=== PATIENT | female | born 1960 | race Caucasian/White ===

== ENCOUNTER 2017-07-09 18:00 | Emergency (ER) | payer MEDICARE, MEDICAID ==
[~2017-07-09] VITALS: Ht 162.6 cm; Wt 163.6 kg
[~2017-07-09 18:00] MED LIST: ALPHAMIN1000 MCG/M IM; AMITRIPTYLINE H25 M1 PO; ATIVAN 0.50.5 MG/TAB PO; BACTRIM DS 8001 TAB PO; BUDEPRION SR150 M1 PO; BUMEX 1MG TA1 MG/TA1; CARAFATE 1GM1 G PO; CLEOCIN HC150 MG/CAP PO; DAZIDOX10 MG PO; DIFLUCAN150 MG PO; DIFLUCAN200 MG PO; ESTRACE2 MG PO; LIORESAL 1010 MG/TAB PO; LYRICA 150MG C150 MG PO; NASACORT AQ N16.5 GM NS; NEXIUM 40MG40 MG PO; NYAMYC100000 U/G; OMNICEF 300MG300 MG PO; OXYCONTIN30 MG PO; PREDNISONE10 MG PO; PROAIR HFA0.09 MG/AC IH; PROTOPIC0.1% TP; ROBITUSSIN A-C S1 M1 PO; SYNTHROID0.175 MG PO; VOLTAREN GEL 1%1 TU; ZITHROMAX 250M250 MG PO; ZITHROMAX500 M2 PO; ZOFRAN ODT4 MG PO
[2017-07-09 18:03] VITALS: TEMP 97.9
[2017-07-09 19:57] LABS: BASO % 0.3 % (0.0-2.0); EOS # 0.3 (0.0-0.7); EOS % 2.9 % (0-4.0); GRAN # 6.3 (1.4-6.5); GRAN % 70.5 % (42.2-75.2); HEMOGLOBIN 12.9 g/dl (12.5-16.0); LYMPH # 1.6 (1.2-3.4); LYMPH % 18.3 % (20.0-51.0); MEAN CELL VOLUME 91 fl (80.0-100.0); MEAN CORPUSCULAR HEMOGLOBIN 29 pg (27.0-31.0); MEAN CORPUSCULAR HGB CONC 32 g/dl (33.0-37.0); MEAN PLATELET VOLUME 11.3 fl (7.4-10.4); MONO # 0.7 (0.1-0.6); MONO % 7.7 % (1.7-9.3); PLATELET COUNT 197 K/mm3 (130-400); RED BLOOD COUNT 4.53 M/mm3 (4.10-5.30); REDCELL DISTRIBUTION WIDTH-CV 14.1 % (11.5-14.5)
[2017-07-09 20:04] LABS: ALBUMIN 3.7 gm/dL (3.5-5.0); BILIRUBIN,TOTAL 0.4 mg/dL (0.0-1.0); CALCIUM 8.8 mg/dL (8.4-10.2); CREATININE, serum 0.9 mg/dL (0.52-1.25); TOTAL PROTEIN 7.3 gm/dL (6.4-8.2)
[2017-07-09] MEDS ORDERED: WELLBUTRIN 75MG75 MG PO (21:05)
[2017-07-09] MEDS ORDERED: RT ADVAIR 128 DISKUS IH (21:08)
[2017-07-09] MEDS ORDERED: BUMEX 1MG TA1 MG/TA1 PO (21:12)
[2017-07-09] MEDS ORDERED: MYRBETR50MG PO (21:13)
[2017-07-09] MEDS ORDERED: TUSS PO (21:52)
[2017-07-09] MEDS ORDERED: PREDNISONE20 MG PO ×2 (21:52→22:12)
[2017-07-09] MEDS ORDERED: OMNICEF 300MG300 MG PO ×2 (21:52→22:12)
[2017-07-09] MEDS ORDERED: DOXYCYCLINE 10100 MG PO ×2 (21:52→22:12)
[2017-07-09 22:23] VITALS: BP 145/75; PULSE 79
== END 2017-07-09 22:26 | disposition home or self-care (01) ==
LOC: COL.ER 18:00
PROVIDERS: Emergency Medicine
DX: J84.9 Interstitial pulmonary disease, unspecified (principal); Z87.891 Personal history of nicotine dependence; Z87.01 Personal history of pneumonia (recurrent); Z87.39 Personal history of other diseases of the musculoskeletal system and connective tissue; Z79.51 Long term (current) use of inhaled steroids
CPT/HCPCS: J7030; J7512; Q9967

== ENCOUNTER 2017-07-12 17:05 | Inpatient (IN) | payer MEDICARE, MEDICAID ==
[2017-07-12] VITALS (22 sets, daily range): BP systolic 137–139; BP diastolic 70–73; PULSE 78–79; TEMP 97.8–98; O2SAT 90–95
[~2017-07-12] VITALS: Ht 162.6 cm; Wt 163.9 kg
[~2017-07-12 17:05] MED LIST changes: -ALPHAMIN1000 MCG/M IM; +BUMEX 1MG TA1 MG/TA1 PO; +CYANOCOBAL1000 MCG/1 IM; +DOXYCYCLINE 10100 MG PO; +MYRBETR50MG PO; +PREDNISONE20 MG PO; +RT ADVAIR 128 DISKUS IH; +TUSS PO; +WELLBUTRIN 75MG75 MG PO
[2017-07-12 18:00] LABS: COLLECTION METHOD CLEAN CATCH
[2017-07-12 18:20] LABS: PH 6 (5-8); URINE APPEARANCE Hazy; URINE BACTERIA None Seen /hpf; URINE BILIRUBIN Negative (NEGATIVE); URINE BLOOD Negative (NEGATIVE); URINE COLOR Yellow; URINE GLUCOSE Negative (NEGATIVE); URINE KETONE Negative (NEGATIVE); URINE LEUKOCYTE ESTERASE Negative (NEGATIVE); URINE NITRATE Negative (NEGATIVE); URINE PROTEIN(semi-quant) Negative (NEGATIVE); URINE RBC 0-2 /hpf
[2017-07-12 18:30] LABS: BASO % 0.3 % (0.0-2.0); EOS % 0.2 % (0-4.0); GRAN # 6.9 (1.4-6.5); GRAN % 79.3 % (42.2-75.2); HEMATOCRIT 42.9 % (37.0-47.0); HEMOGLOBIN 13.6 g/dl (12.5-16.0); LYMPH # 1.1 (1.2-3.4); LYMPH % 12.3 % (20.0-51.0); MEAN CELL VOLUME 90 fl (80.0-100.0); MEAN CORPUSCULAR HEMOGLOBIN 28 pg (27.0-31.0); MEAN CORPUSCULAR HGB CONC 32 g/dl (33.0-37.0); MEAN PLATELET VOLUME 11.4 fl (7.4-10.4); MONO # 0.6 (0.1-0.6); MONO % 7.1 % (1.7-9.3); PLATELET COUNT 278 K/mm3 (130-400); RED BLOOD COUNT 4.79 M/mm3 (4.10-5.30); REDCELL DISTRIBUTION WIDTH-CV 13.4 % (11.5-14.5)
[2017-07-12 18:49] LABS: ANION GAP 12 mmol/L (7-16); BLOOD UREA NITROGEN 27 mg/dL (7-17); CALCIUM 9.1 mg/dL (8.4-10.2); CARBON DIOXIDE 30 mmol/L (22-30); CHLORIDE 100 mmol/L (98-107); CREATININE, serum 0.96 mg/dL (0.52-1.25); GLUCOSE 122 mg/dL (74-106); POTASSIUM 4.6 mmol/L (3.4-5.0); SODIUM 142 mmol/L (137-145)
[2017-07-12 18:58] LABS: TROPONIN-I < 0.012 ng/mL (0.000-0.034)
[2017-07-12 22:24] LABS: ARTERIAL BLD GAS O2 SATURATION 93.6 % (92-100); ARTERIAL BLD GAS TCO2 CT 29.9; ARTERIAL BLOOD GAS BASE EXCESS 2.8 (-2-2); ARTERIAL BLOOD GAS HCO3 28.5 meq/L (22-26); ARTERIAL BLOOD GAS PCO2 48.1 mmHg (35-45); ARTERIAL BLOOD GAS PO2 75.7 mmHg (80-100); ARTERIAL BLOOD GAS pH 7.39 (7.35-7.45)
[2017-07-13] VITALS (701 sets, daily range): BP systolic 124–141; BP diastolic 54–77; PULSE 60–90; TEMP 97–98.2; O2SAT 85–98
[2017-07-13 05:51] LABS: BASO % 0.4 % (0.0-2.0); EOS % 0.1 % (0-4.0); GRAN # 8.7 (1.4-6.5); GRAN % 86.4 % (42.2-75.2); HEMATOCRIT 41.6 % (37.0-47.0); LYMPH # 0.9 (1.2-3.4); MEAN CELL VOLUME 93 fl (80.0-100.0); MEAN CORPUSCULAR HEMOGLOBIN 29 pg (27.0-31.0); MEAN CORPUSCULAR HGB CONC 31 g/dl (33.0-37.0); MEAN PLATELET VOLUME 11.3 fl (7.4-10.4); MONO # 0.4 (0.1-0.6); MONO % 3.7 % (1.7-9.3); PLATELET COUNT 256 K/mm3 (130-400); RED BLOOD COUNT 4.49 M/mm3 (4.10-5.30); REDCELL DISTRIBUTION WIDTH-CV 13.6 % (11.5-14.5)
[2017-07-13 06:19] LABS: ALBUMIN 3.8 gm/dL (3.5-5.0); BILIRUBIN,TOTAL 0.3 mg/dL (0.0-1.0); CALCIUM 8.7 mg/dL (8.4-10.2); CREATININE, serum 0.95 mg/dL (0.52-1.25); POTASSIUM 4.8 mmol/L (3.4-5.0); TOTAL PROTEIN 7.8 gm/dL (6.4-8.2)
[2017-07-13 15:38] LABS: RHEUMATOID FACTOR-SCREEN 77 IU/mL (0-29)
[2017-07-13 16:05] LABS: PROCALCITONIN 0.03 ng/mL (0.00-0.09)
[2017-07-14 04:20] VITALS: BP 150/69; PULSE 78; TEMP 97.7
[2017-07-14 06:41] LABS: BASO % 0.2 % (0.0-2.0); EOS % 0.1 % (0-4.0); GRAN # 7.7 (1.4-6.5); GRAN % 73.6 % (42.2-75.2); HEMATOCRIT 38.3 % (37.0-47.0); HEMOGLOBIN 12.1 g/dl (12.5-16.0); LYMPH # 1.7 (1.2-3.4); LYMPH % 15.8 % (20.0-51.0); MEAN CELL VOLUME 91 fl (80.0-100.0); MEAN CORPUSCULAR HEMOGLOBIN 29 pg (27.0-31.0); MEAN CORPUSCULAR HGB CONC 32 g/dl (33.0-37.0); MEAN PLATELET VOLUME 11.2 fl (7.4-10.4); MONO % 9.5 % (1.7-9.3); PLATELET COUNT 248 K/mm3 (130-400); REDCELL DISTRIBUTION WIDTH-CV 13.4 % (11.5-14.5)
[2017-07-14 07:29] VITALS: BP 126/108; PULSE 53; TEMP 97
[2017-07-14] MEDS ORDERED: ZITHROMAX 250M250 MG PO (13:20)
[2017-07-14] MEDS ORDERED: PREDNISONE10 MG PO (13:25)
[2017-07-14 13:30] VITALS: BP 154/80; PULSE 82; TEMP 96.7
[2017-07-14 14:39] LABS: ANGIOTENSIN CONVERTING ENZYME 34 U/L (8 - 53)
== END 2017-07-14 17:00 | disposition home health service (06) | DRG 202 ==
LOC: COL.ER 17:05 → MEDICAL 19:04 → ICU 19:13 → MEDICAL 19:19 → ICU 23:26 → MEDICAL 07-13 13:54
PROVIDERS: Emergency Medicine; Family Medicine; Nurse Practitioner Family
DX: J20.6 Acute bronchitis due to rhinovirus (principal); Z68.44 Body mass index [BMI] 60.0-69.9, adult; E87.2 Acidosis; E66.2 Morbid (severe) obesity with alveolar hypoventilation; Z98.84 Bariatric surgery status; M79.7 Fibromyalgia; G89.4 Chronic pain syndrome
CPT/HCPCS: 99223-AI; 99239; J0456; J1650; J2185; J2930; J3370; J7050; J7512

== ENCOUNTER 2018-07-24 16:42 | Emergency (ER) | payer MEDICARE, MEDICAID ==
[~2018-07-24] VITALS: Ht 162.6 cm; Wt 165.0 kg
[2018-07-24 16:51] VITALS: TEMP 97.9
[2018-07-24 17:58] LABS: BASO % 0.7 % (0.0-2.0); GRAN # 4.1 (1.4-6.5); GRAN % 71.4 % (42.2-75.2); LYMPH # 1.1 (1.2-3.4); MEAN CELL VOLUME 90 fl (80.0-100.0); MEAN CORPUSCULAR HEMOGLOBIN 28 pg (27.0-31.0); MEAN CORPUSCULAR HGB CONC 31 g/dl (33.0-37.0); MEAN PLATELET VOLUME 12.7 fl (7.4-10.4); MONO # 0.5 (0.1-0.6); MONO % 8.7 % (1.7-9.3); PLATELET COUNT 178 K/mm3 (130-400); RED BLOOD COUNT 5.03 M/mm3 (4.10-5.30); REDCELL DISTRIBUTION WIDTH-CV 14.8 % (11.5-14.5)
[2018-07-24 18:26] LABS: BILIRUBIN,TOTAL 0.6 mg/dL (0.0-1.0); C-REACTIVE PROTEIN 1.4 mg/dL (0.0-0.9); CALCIUM 9.6 mg/dL (8.4-10.2); CREATININE, serum 1.08 (0.52-1.25); POTASSIUM 4.2 mmol/L (3.4-5.0); TOTAL PROTEIN 7.3 gm/dL (6.4-8.2)
[2018-07-24 19:59] LABS: COLLECTION METHOD CLEAN CATCH
[2018-07-24 20:10] LABS: MUCOUS Present /lpf; PH 8 (5-8); SQUAMOUS EPITHELIAL 0-2 /hpf; URINE APPEARANCE Hazy; URINE BACTERIA Rare /hpf; URINE BILIRUBIN Negative (NEGATIVE); URINE BLOOD Negative (NEGATIVE); URINE COLOR Yellow; URINE GLUCOSE Negative (NEGATIVE); URINE KETONE Trace (NEGATIVE); URINE LEUKOCYTE ESTERASE Negative (NEGATIVE); URINE NITRATE Positive (NEGATIVE); URINE PROTEIN(semi-quant) Negative (NEGATIVE); URINE UROBILINOGEN Negative (NEGATIVE)
[2018-07-24 21:38] VITALS: BP 123/67; PULSE 72
== END 2018-07-24 21:38 | disposition home or self-care (01) ==
LOC: COL.ER 16:42
PROVIDERS: Family Medicine; Nurse Practitioner
DX: R10.32 Left lower quadrant pain (principal); F32.9 Major depressive disorder, single episode, unspecified; K21.9 Gastro-esophageal reflux disease without esophagitis; M79.7 Fibromyalgia
CPT/HCPCS: J2270; J2405; J3010; J7030; Q9967

== ENCOUNTER → 2019-10-01 | Outpatient (CLI) | payer MEDICARE, MEDICAID ==
[2019-10-01 11:31] LABS: ARTERIAL BLD GAS O2 SATURATION 91.2 % (92-100); ARTERIAL BLOOD GAS BASE EXCESS 3.6 (-2-2); ARTERIAL BLOOD GAS HCO3 30.4 meq/L (22-26); ARTERIAL BLOOD GAS PCO2 54.5 mmHg (35-45); ARTERIAL BLOOD GAS PO2 57.1 mmHg (80-100); ARTERIAL BLOOD GAS pH 7.36 (7.35-7.45)
== END ==
LOC: COL.PUL 11:05
PROVIDERS: Internal Medicine Pulmonary Disease
DX: G47.31 Primary central sleep apnea (principal)

== ENCOUNTER 2019-10-22 18:35 | Inpatient (IN) | payer MEDICARE, MEDICAID ==
[~2019-10-22] VITALS: Ht 162.6 cm; Wt 180.9 kg
[2019-10-22 19:26] LABS: BASO % 0.2 % (0.0-2.0); EOS % 0.2 % (0-4.0); GRAN # 11.2 (1.4-6.5); GRAN % 86.6 % (42.2-75.2); HEMATOCRIT 40.1 % (37.0-47.0); HEMOGLOBIN 12.5 g/dl (12.5-16.0); LYMPH # 0.8 (1.2-3.4); LYMPH % 6.1 % (20.0-51.0); MEAN CELL VOLUME 94 fl (80.0-100.0); MEAN CORPUSCULAR HEMOGLOBIN 29 pg (27.0-31.0); MEAN CORPUSCULAR HGB CONC 31 g/dl (33.0-37.0); MEAN PLATELET VOLUME 12.3 fl (7.4-10.4); MONO # 0.8 (0.1-0.6); MONO % 6.3 % (1.7-9.3); PLATELET COUNT 133 K/mm3 (130-400); RED BLOOD COUNT 4.26 M/mm3 (4.10-5.30); REDCELL DISTRIBUTION WIDTH-CV 15.4 % (11.5-14.5)
[2019-10-22 19:38] LABS: ALBUMIN 3.4 gm/dL (3.5-5.0); BILIRUBIN,TOTAL 0.8 mg/dL (0.0-1.0); CALCIUM 8.2 mg/dL (8.4-10.2); CREATININE, serum 1.29 (0.52-1.25); TOTAL PROTEIN 6.7 gm/dL (6.4-8.2)
[2019-10-22 20:07] LABS: C-REACTIVE PROTEIN 39.3 mg/dL (0.0-0.9)
[2019-10-22 21:55] VITALS: BP 110/55; PULSE 99; TEMP 97.5
--- NOTE | 2019-10-22 21:57 | NUR ---
PT ADMITTED TO ROOM 341 PER CBED. X4 STAFF TO TRANSFER. VANCOMYCIN STILL INFUSING AT 166/HR TO RT ARM. PT HAVING LEVEL 8-9 PAIN AT REST. ORIENTED TO ROOM. CALL LIGHT IN REACH. BED ALARM ON.
[2019-10-22] MEDS ORDERED: NAPROSYN500 MG PO (23:09)
[2019-10-22] MEDS ORDERED: SINGULAIR 110 MG/TAB PO (23:16)
[2019-10-22] MEDS ORDERED: PROTONIX 40MG T40 MG PO (23:17)
[2019-10-22 23:47] VITALS: BP 102/53; PULSE 95; TEMP 97.7
[2019-10-22] MEDS ORDERED: ANTIVERT 25MG25 MG PO (23:50)
[2019-10-22] MEDS ORDERED: AZO-CRANBERRY450 MG (23:52)
[2019-10-22] MEDS ORDERED: ATARAX 10MG10 MG/TAB PO (23:55)
[2019-10-22] MEDS ORDERED: MYCELEX10 MG/TAB MM (23:58)
[2019-10-22] MEDS ORDERED: ALEVE 220MG220 MG PO (23:59)
--- NOTE | 2019-10-23 | NUR ---
PT SLEEPING. O2 3L/NC. HEPARIN GTT AT 23CC/HR. IV SITE CLEAR. EXTERNAL CATHETER IN PLACE. NO URINE AT THIS TIME. NO EVIDENCE OF PAIN. LLE ELEVATED ON PILLOWS. PEDAL PULSE PRESENT. FEET WARM TO TOUGH. CALL LIGHT IN REACH. BED ALARM SET.
[2019-10-23] MEDS ORDERED: VENTOLIN0.09 MG IH (00:11)
[2019-10-23] MEDS ORDERED: RT ADVAIR 228 DISKUS IH (00:14)
--- NOTE | 2019-10-23 00:30 | NUR ---
TURNED OVER TO CLEAN BUTTOCK. HAD DRIED BM ON BEDDING. TRANSFERRED PT TO BARIATRIC BED AND THEN TO ROOM 322. RT HERE TO PLACE CPAP WITH O2. PT DOZING. CALL LIGHT IN REACH.
[2019-10-23] MEDS ORDERED: SYSTANE 0.4%-0.1 SOL OP (00:46)
[2019-10-23] MEDS ORDERED: WOMEN'S DAILY F1 TAB PO (00:47)
--- NOTE | 2019-10-23 02:30 | NUR ---
PT SLEEPING WAKES AND MOANS IN PAIN. LLE PAIN LEVEL 9/10. SEE MAR FOR ROXICODE GIVEN. CPAP BACK ON. PT FALLS ASLEEP.
[2019-10-23 04:00] VITALS: BP 114/51; PULSE 74; TEMP 98.9
[2019-10-23] MEDS ORDERED: ABILIFY 10MG TA10 MG PO (05:46)
--- NOTE | 2019-10-23 05:49 | NUR ---
PT MOANING. C/O LLE PAIN. SEE MAR. CONTINUED CPAP WITH O2 BLED IN. HEPARIN GTT CONTINUES W/O DIFFICULTY. NO OTHER NEEDS AT THIS TIME.
--- NOTE | 2019-10-23 06:42 | NUR ---
CALLED LAB FOR HEPARIN LEVEL.
--- NOTE | 2019-10-23 08:19 | NUR ---
RA SPO2 78% PLACED ON 4 LPM NC 93%
[2019-10-23 08:57] VITALS: BP 121/52; PULSE 106; TEMP 97.6
--- NOTE | 2019-10-23 09:00 | NUR ---
Flower ATKINSON notified of + blood cx
[2019-10-23 11:00] VITALS: BP 103/50; PULSE 75; TEMP 97.2
--- NOTE | 2019-10-23 11:09 | NUR ---
Derrick Barge Operator met with patient to discuss discharge planning. Patient lives in [place] with her boyfriend, Cale Zhang (ph#[phone]). Patient reports Cale works in [place] and is just here temporarily until he has to return to work. Patient states Cale works for the [employer] [place] and when he returned to [place] this last time, they quarantined for 14 days due to concerns for COVID. Patient states her sister, Anamika (ph#[phone]) lives in [place] as well. Patient has DPOA-HC located in [facility] which designate her son, Jaden (ph#[phone]) and Cale. Patient states she receives some in home services from [facility] but that they have not been out lately due to COVID. Patient reports she has a four wheeled walker that she uses primarily along with a cane and lift chair at home. Patient also has home oxygen and CPAP from [facility]. Patient obtains medications from either [facility] in [place] or [facility] in [place]. Patient states sometimes her sister or niece pepper picker the medications for her. Patient's primary care physician is Elda Gomes PA-C. Patient states she has had a little more difficulty getting around recently. PT/OT have been ordered and MAGGY will follow for recommendations. MAGGY contacted Alina at [facility] and left a message. MAGGY contacted patient's son, Jaden who reports patient does not get around much at home. Jaden advised patient spends most of her time in her recliner, which can lift her up. Jaden reports normally patient can walk to the bathroom independently. SW will continue to follow for discharge needs.
--- NOTE | 2019-10-23 11:15 | NUR ---
Patient down to radiology for knee aspiration
--- NOTE | 2019-10-23 12:20 | NUR ---
Patient called out to nurses station, states pain to LLE after returning from radiology.
--- NOTE | 2019-10-23 12:30 | NUR ---
Vancomycin Initial Dosing Pharmacy Note Ordering provider: Romeo Clemons MD Indication/duration: Cellulitis LLE Relevant comorbidities: Prosthetic joint LABS: SCr = 1.29 Recommendation: Checking trough prior to 4th dose. Will follow labs. Loading dose: 2 grams Maintenance dose: 2 grams every 12 hours Trough goal: 10-15 ug/mL
[2019-10-23 12:58] LABS: SYNOVIAL FL. MONONUCLEAR 22.1 % (0-75)
[2019-10-23 13:01] LABS: SYNOVIAL FLUID WBC 19228 /mm3 (200-600)
[2019-10-23 13:03] LABS: SYNOVIAL FLUID RBC 4000 /mm3 (0-0)
[2019-10-23 13:12] LABS: SYNOVIAL FLUID APPEARANCE CLOUDY; SYNOVIAL FLUID COLOR YELLOW
[2019-10-23 17:08] VITALS: BP 117/58; PULSE 74; TEMP 97.9
--- NOTE | 2019-10-23 18:16 | NUR ---
Solange has done well throughout the day. Has requested pain meds for pain to LLE, medications given per orders. Heparin continues infusing per orders. Antibiotics infusing per orders. Denies further needs at this time. Will report off to manufacturing supervisor 2nd shift.
--- NOTE | 2019-10-23 20:00 | NUR ---
PT RESTING IN BED. C/O LLE PAIN. SEE MAR FOR ROXICODONE GIVEN. PT C/O WAITED TOO LONG TO ASK FOR PAIN MED. DISCUSSED PAIN MANGEMENT. LT KNEE BANDAIDS X3 ARE DRY. LLE WARM TO TOUCH. PPP. SEE MAR FOR HEPARIN GTT.
--- NOTE | 2019-10-23 20:15 | NUR ---
PT RELATES UNRELIEVED PAIN TO LLE. SEE MAR FOR DILADID IV GIVEN.
--- NOTE | 2019-10-23 23:45 | NUR ---
DILADID IV GIVEN PRIOR TO TURNING PT FOR BEDPAN. PLANNING ON MOVING PT TO A LARGER ROOM 322. ALSO CALLED FOR A BARIATRIC BED WITH CATRACHO. PT HAD NO LUCK WITH BM. PASSING GAS.
[2019-10-24] VITALS (329 sets, daily range): BP systolic 103–143; BP diastolic 42–77; PULSE 62–95; TEMP 98–98.6; O2SAT 71–99
--- NOTE | 2019-10-24 05:27 | NUR ---
PT TOOK CPAP OFF AND FELL ASLEEP. O2 SAT DOWN 72% ON RA. O2 PLACED PER NC AT 4L. O2 SAT RETURNED TO 92%. ZOFRAN GIVEN FOR NAUSEA. LAB HERE TO DRAW BLOOD.
--- NOTE | 2019-10-24 05:30 | NUR ---
PT FEELING BETTER NAUSEA RESOLVED. TAKING ICE CHIP FOR DRY MOUTH. O2 SAT 94% ON 4L NC
[2019-10-24 06:37] LABS: ALBUMIN 3.1 gm/dL (3.5-5.0); BILIRUBIN,TOTAL 0.9 mg/dL (0.0-1.0); CALCIUM 8.2 mg/dL (8.4-10.2); CREATININE, serum 0.96 (0.52-1.25); POTASSIUM 4.6 mmol/L (3.4-5.0); TOTAL PROTEIN 6.5 gm/dL (6.4-8.2)
[2019-10-24 06:55] LABS: BASO % 0.4 % (0.0-2.0); EOS # 0.1 (0.0-0.7); EOS % 0.7 % (0-4.0); GRAN # 7.7 (1.4-6.5); GRAN % 83.1 % (42.2-75.2); HEMATOCRIT 37.5 % (37.0-47.0); HEMOGLOBIN 11.7 g/dl (12.5-16.0); LYMPH # 0.7 (1.2-3.4); LYMPH % 7.5 % (20.0-51.0); MEAN CELL VOLUME 95 fl (80.0-100.0); MEAN CORPUSCULAR HEMOGLOBIN 30 pg (27.0-31.0); MEAN CORPUSCULAR HGB CONC 31 g/dl (33.0-37.0); MEAN PLATELET VOLUME 13.7 fl (7.4-10.4); MONO # 0.7 (0.1-0.6); MONO % 7.2 % (1.7-9.3); PLATELET COUNT 122 K/mm3 (130-400); RED BLOOD COUNT 3.96 M/mm3 (4.10-5.30); REDCELL DISTRIBUTION WIDTH-CV 15.1 % (11.5-14.5)
--- NOTE | 2019-10-24 08:00 | NUR ---
Patient resting in bed at this time. Patient is alert and oriented, answers questions appropriately. Patient is resting in bed eating breakfast at this time. Patient is on O2 via NC at 5L. Purwick external catheter in place, clear yellow urine in suction cannister. Patient is very anxious, requests PRN pain medication but declines axiety medication. Heparin drip in place per order, running at 23 ml/hr per last hep Xa; next draw scheduled at 1100 per protocol. Patient denies further needs at this time, call light within reach.
[2019-10-24 09:49] LABS: ARTERIAL BLD GAS O2 SATURATION 94.1 % (92-100); ARTERIAL BLD GAS TCO2 CT 34.6; ARTERIAL BLOOD GAS BASE EXCESS 3.2 (-2-2); ARTERIAL BLOOD GAS HCO3 32.3 meq/L (22-26); ARTERIAL BLOOD GAS PO2 76.8 mmHg (80-100); ARTERIAL BLOOD GAS pH 7.26 (7.35-7.45)
[2019-10-24 09:50] LABS: ARTERIAL BLOOD GAS PCO2 74.1 mmHg (35-45)
[2019-10-24 11:47] LABS: ARTERIAL BLD GAS O2 SATURATION 95.4 % (92-100); ARTERIAL BLD GAS TCO2 CT 34.6; ARTERIAL BLOOD GAS BASE EXCESS 3.7 (-2-2); ARTERIAL BLOOD GAS HCO3 32.3 meq/L (22-26); ARTERIAL BLOOD GAS PO2 83.3 mmHg (80-100); ARTERIAL BLOOD GAS pH 7.27 (7.35-7.45)
[2019-10-24 11:49] LABS: ARTERIAL BLOOD GAS PCO2 71.9 mmHg (35-45)
--- NOTE | 2019-10-24 13:00 | NUR ---
Patient arrived to ICU 1 in a bed on O2. Patient not in distress and is stable.
--- NOTE | 2019-10-24 13:14 | NUR ---
Patient transported to ICU per orders via bariatric bed. Patient transported with 6L O2, RT present during transfer to monitor patient respratory status. Heparin drip and IV zosyn in place upon transfer. Patient belongings and chart gathered, transported with her to ICU. Patient and recieving nurse deny further needs.
--- NOTE | 2019-10-24 13:15 | NUR ---
When patient arrived to room it was noted that she, her gown and her entire bed, was soaked with urine. There were bailee pads and towels shoved under her rob area that were also soaked.
[2019-10-24 15:33] LABS: ARTERIAL BLD GAS O2 SATURATION 94.9 % (92-100); ARTERIAL BLD GAS TCO2 CT 37.1; ARTERIAL BLOOD GAS HCO3 34.9 meq/L (22-26); ARTERIAL BLOOD GAS PO2 75.4 mmHg (80-100); ARTERIAL BLOOD GAS pH 7.29 (7.35-7.45)
--- NOTE | 2019-10-24 15:44 | NUR ---
Media Analytics Manager attended clinical rounds with DEMETRIO Crenshaw. Patient is currently on a bipap and will transfer to ICU. Patient had difficulty communicating due to the bipap. SW collaborated with DEMETRIO Crenshaw and LTACH may be appropriate for patient at discharge. SW contacted patient's son, Jaden to provide update. SW discussed LTACH placement with Jaden who is agreeable to have referral sent to [facility]. SW contacted Feroz at [facility] and faxed referral. SW will continue to follow.
--- NOTE | 2019-10-24 16:20 | NUR ---
Anesthesia, Rolando the TERRITORY SALES MANAGER, arrived to intubate patient. Everything set up and ready to go.
--- NOTE | 2019-10-24 16:22 | NUR ---
Patient is intubated, good lunch sounds. OG tube placed. Patient started on propofol drip. CXRAy ordered. Mendoza cather placed. arrived at patient bedside and put in orders for restraints that are placed, as well as other orders.
--- NOTE | 2019-10-24 18:12 | NUR ---
JOSE JUST SEDATED HALF AN HOUR AGO. NO SEDATION VACATION AT THIS TIME.
--- NOTE | 2019-10-24 19:05 | NUR ---
RECEIVED REPORT FROM NEHA MUNSON. RT AT BEDSIDE. VENT SETTINGS: AC, TV 500, RATE 22, PEEP 8, FIO2 50%. ETT 7.5, 20 AT LIPS. OGT PLACEMENT DISCUSSED WITH XRAY, AWAITING FOR CONFIRMATION. DESIGN CELL ENGINEER IN PLACE. FC PATENT AND DRAINING TO GRAVITY. PT AROUSES EASILY AND LOOKS AT NURSE. VSS. SEE GTT FLOWSHEET.
[2019-10-24 19:44] LABS: ARTERIAL BLD GAS O2 SATURATION 92.2 % (92-100); ARTERIAL BLD GAS TCO2 CT 30.3; ARTERIAL BLOOD GAS BASE EXCESS 6.2 (-2-2); ARTERIAL BLOOD GAS HCO3 29.2 meq/L (22-26); ARTERIAL BLOOD GAS PCO2 36.4 mmHg (35-45); ARTERIAL BLOOD GAS PO2 54.1 mmHg (80-100); ARTERIAL BLOOD GAS pH 7.52 (7.35-7.45)
--- NOTE | 2019-10-24 19:50 | NUR ---
SPOKE TO PT'S SON, ED WHO IS NEXT OF KIN, GAVE SON PT'S CODE NUMBER AND UPDATED ON PT'S STATUS.
--- NOTE | 2019-10-24 22:00 | NUR ---
SPOKE WITH TERRI NEELY, VERBALIZED RADIOLOGIST STATES OGT IN STOMACH AFTER REINSERTION FROM TUBE ORIGINALLY NOTED IN THROAT. OGT SECURED AT 68 LIPS AND PLACED ON LIS.
--- NOTE | 2019-10-24 22:45 | NUR ---
SPOKE WITH EPHARMACY ABOUT WHAT MEDICATIONS CAN AND CANNOT BE CRUSHED, SEE MAR FOR MEDICATION ADMINISTRATION.
[2019-10-25] VITALS (666 sets, daily range): BP systolic 123–152; BP diastolic 55–91; PULSE 55–162; TEMP 97.9–98.7; O2SAT 88–100
--- NOTE | 2019-10-25 05:00 | NUR ---
PT AROUSES TO VERBAL STIMULI AND NODS HEAD YES AND NO TO SIMPLE QUESTIONS. NO WEANING TRIAL THIS AM PERFORMED.
[2019-10-25 05:54] LABS: ARTERIAL BLD GAS O2 SATURATION 91.6 % (92-100); ARTERIAL BLOOD GAS BASE EXCESS 7.8 (-2-2); ARTERIAL BLOOD GAS HCO3 29.9 meq/L (22-26); ARTERIAL BLOOD GAS PCO2 34.2 mmHg (35-45); ARTERIAL BLOOD GAS PO2 53.3 mmHg (80-100); ARTERIAL BLOOD GAS pH 7.56 (7.35-7.45)
[2019-10-25 06:30] LABS: HEMATOCRIT 37.7 % (37.0-47.0); HEMOGLOBIN 12.1 g/dl (12.5-16.0); MEAN CELL VOLUME 93 fl (80.0-100.0); MEAN CORPUSCULAR HEMOGLOBIN 30 pg (27.0-31.0); MEAN CORPUSCULAR HGB CONC 32 g/dl (33.0-37.0); MEAN PLATELET VOLUME 12.3 fl (7.4-10.4); PLATELET COUNT 173 K/mm3 (130-400); RED BLOOD COUNT 4.07 M/mm3 (4.10-5.30); REDCELL DISTRIBUTION WIDTH-CV 15.3 % (11.5-14.5)
[2019-10-25 06:40] LABS: CALCIUM 8.8 mg/dL (8.4-10.2); CREATININE, serum 0.9 (0.52-1.25); MAGNESIUM 1.8 mg/dL (1.6-2.3); PHOSPHOROUS 2.2 mg/dL (2.5-4.5); POTASSIUM 3.9 mmol/L (3.4-5.0)
[2019-10-25 06:59] LABS: BAND 8 % (0-10); LYMPHOCYTE 16 % (20.0-51.0); METAMYELOCYTE 1 % (0-0); NEUTROPHILS 71 % (42.0-75.2); PLATELET ESTIMATE NORMAL (NORMAL)
--- NOTE | 2019-10-25 08:53 | NUR ---
CT CALLED UNIT TO INFORM STAFF THAT PT CALL NOT FIT IN MACHINE FOR TESTING, DR. PARSON MADE AWARE AWAITING ORDERS.
--- NOTE | 2019-10-25 10:18 | NUR ---
PT RESTING IN BED, CCIE AT BEDSIDE. PT REMAINS IN RESTRAINTS AT RISK OF PILLING TUBES AND LINE, NARAYAN IN PLACE FOR ACCURATE I&O. PT REMAINS ON FENT AND PROP FOR SEDATION AND NO S/S OF PAIN NOTED AT THIS TIME. PALPATION AND DOPPLER USED TO FIND BILAT LE PULSES. WILL CONTINUE TO MONITOR AND UPDATE PROVIDERS NEEDED
--- NOTE | 2019-10-25 11:34 | NUR ---
PT OGT ADVANCED TO 75CM AT TEETH
--- NOTE | 2019-10-25 13:44 | NUR ---
Employee Communications Specialist contacted the patient's son/DPOA-HC Jaden to introduce oneself and to discuss discharge plan. He is still agreeable to [facility] [place]. SW contacted Feroz with [facility]. They can accept the patient, earliest on Monday, 10/26, possibly Monday, 10/27 and with a negative Covid-19 test. MAGGY faxed updates. Will continue to monitor.
[2019-10-25 13:54] LABS: ARTERIAL BLD GAS O2 SATURATION 92.2 % (92-100); ARTERIAL BLD GAS TCO2 CT 34.2; ARTERIAL BLOOD GAS BASE EXCESS 7.7 (-2-2); ARTERIAL BLOOD GAS HCO3 32.8 meq/L (22-26); ARTERIAL BLOOD GAS PCO2 47.8 mmHg (35-45); ARTERIAL BLOOD GAS PO2 62.7 mmHg (80-100); ARTERIAL BLOOD GAS pH 7.45 (7.35-7.45)
--- NOTE | 2019-10-25 13:58 | NUR ---
ABG DONE POST CHANGES FROM AM. DR. NARAYAN AT BEDSIDE. RESULTS GIVEN AND CHANGES MADE AT THIS TIME. REPEAT ABG AGAIN AT THIS EVENING.
--- NOTE | 2019-10-25 14:21 | NUR ---
SOCIAL WORK NEEDS COVID TESTING DONE FOR [facility]
--- NOTE | 2019-10-25 17:39 | NUR ---
PIVOT 1.5 TF STARTED AT 15ML/HR
--- NOTE | 2019-10-25 18:28 | NUR ---
PT ABLE TO WAKE TO VOICE COMMAND, F/C, RESPONDS APPROPRIATELY. SEDATION REMAINS THE SAME.
--- NOTE | 2019-10-25 19:10 | NUR ---
RECEIVED REPORT FROM NEHA SRINIVASAN. PT RESTING EASILY ON CURRENT VENT SETTINGS: AC, TV 450, PEEP 10, RATE 15, FIO2 70%. FC PATENT AND DRAINING TO GRAVITY. OGT TO LIS AT 75CM AT THE LIPS. VSS.
[2019-10-25 21:38] LABS: ARTERIAL BLD GAS O2 SATURATION 94.9 % (92-100); ARTERIAL BLD GAS TCO2 CT 34.4; ARTERIAL BLOOD GAS BASE EXCESS 7.4 (-2-2); ARTERIAL BLOOD GAS HCO3 32.8 meq/L (22-26); ARTERIAL BLOOD GAS PCO2 49.8 mmHg (35-45); ARTERIAL BLOOD GAS PO2 76.9 mmHg (80-100); ARTERIAL BLOOD GAS pH 7.44 (7.35-7.45)
[2019-10-26] VITALS (745 sets, daily range): BP systolic 134–155; BP diastolic 67–82; PULSE 65–91; TEMP 97.5–98.4; O2SAT 67–100
--- NOTE | 2019-10-26 02:30 | NUR ---
OGT RESIDUAL 2ML, TF INCREASED TO 30ML/HR PER ORDERS.
--- NOTE | 2019-10-26 05:15 | NUR ---
PT AROUSES EASILY AND FOLLOWS COMMANDS. PT REMAINS VERY CALM. AWAITING RT TO DRAW ABG.
[2019-10-26 05:57] LABS: ARTERIAL BLD GAS O2 SATURATION 94.3 % (92-100); ARTERIAL BLD GAS TCO2 CT 33.2; ARTERIAL BLOOD GAS BASE EXCESS 6.1 (-2-2); ARTERIAL BLOOD GAS HCO3 31.6 meq/L (22-26); ARTERIAL BLOOD GAS PO2 74.8 mmHg (80-100); ARTERIAL BLOOD GAS pH 7.42 (7.35-7.45)
[2019-10-26 07:07] LABS: HEMATOCRIT 37.2 % (37.0-47.0); HEMOGLOBIN 11.8 g/dl (12.5-16.0); MEAN CELL VOLUME 93 fl (80.0-100.0); MEAN CORPUSCULAR HEMOGLOBIN 29 pg (27.0-31.0); MEAN CORPUSCULAR HGB CONC 32 g/dl (33.0-37.0); MEAN PLATELET VOLUME 12.2 fl (7.4-10.4); PLATELET COUNT 182 K/mm3 (130-400); RED BLOOD COUNT 4.01 M/mm3 (4.10-5.30); REDCELL DISTRIBUTION WIDTH-CV 15.8 % (11.5-14.5)
[2019-10-26 07:33] LABS: CALCIUM 8.5 mg/dL (8.4-10.2); CREATININE, serum 0.75 (0.52-1.25); MAGNESIUM 2.2 mg/dL (1.6-2.3); PHOSPHOROUS 4.2 mg/dL (2.5-4.5); POTASSIUM 4.2 mmol/L (3.4-5.0)
[2019-10-26 09:20] LABS: BAND 8 % (0-10); LYMPHOCYTE 9 % (20.0-51.0); METAMYELOCYTE 1 % (0-0); NEUTROPHILS 76 % (42.0-75.2)
[2019-10-26 09:21] LABS: PLATELET ESTIMATE NORMAL (NORMAL)
--- NOTE | 2019-10-26 11:30 | NUR ---
Phone consent for arthroscopic left knee Incision and Drainage obtained from [facility]. Plan to go to OR for procedure this afternoon. Tube feeding off.
--- NOTE | 2019-10-26 19:30 | NUR ---
RECEIVED REPORT FROM NEHA ARROYO. PT RESTING EASILY ON CURRENT VENT SETTINGS: AC, TV 450, PEEP 12, RATE 15, FIO2 70%. SEE GTT FLOWSHEET. FC PATENT AND DRAINING TO GRAVITY. NOTED TO LLE DRESSING NEW FROM I&D TODAY. TF INFUSING AT 30ML/HR STILL R/T BEING ON HOLD FROM SURGERY AND WAITING TO SEE HOW PT TOLERATES. VSS.
--- NOTE | 2019-10-26 21:45 | NUR ---
TF INCREASED TO 45ML/HR. NO RESIDUALS NOTED.
[2019-10-27] VITALS (766 sets, daily range): BP systolic 102–159; BP diastolic 55–88; PULSE 56–86; TEMP 98–99; O2SAT 76–100
--- NOTE | 2019-10-27 04:00 | NUR ---
SPOKE WITH SHU'S NURSE ABOUT PT'S HR AND INCREASE OF ECTOPY TONIGHT. ALSO DISCUSSED NOTED TF IN HIGH LOW AND WHEN SUCTIONING OUT MOUTH BUT MOST RESIDUAL WITH FLATTENING PT OUT WAS ONLY 10ML. SHU NURSE DISCUSSED WITH PHYSICIAN, PHYSICIAN REQUESTS MORNING MOTOR EQUIPMENT COMMANDING OFFICER AND LABS TO BE DONE NOW. AWAITING RESULTS.
[2019-10-27 05:09] LABS: HEMATOCRIT 37.6 % (37.0-47.0); HEMOGLOBIN 11.8 g/dl (12.5-16.0); MEAN CELL VOLUME 93 fl (80.0-100.0); MEAN CORPUSCULAR HEMOGLOBIN 29 pg (27.0-31.0); MEAN CORPUSCULAR HGB CONC 31 g/dl (33.0-37.0); MEAN PLATELET VOLUME 11.7 fl (7.4-10.4); PLATELET COUNT 188 K/mm3 (130-400); RED BLOOD COUNT 4.06 M/mm3 (4.10-5.30); REDCELL DISTRIBUTION WIDTH-CV 15.6 % (11.5-14.5)
[2019-10-27 05:15] LABS: CALCIUM 8.5 mg/dL (8.4-10.2); CREATININE, serum 0.75 (0.52-1.25); MAGNESIUM 2.2 mg/dL (1.6-2.3); POTASSIUM 4.5 mmol/L (3.4-5.0)
[2019-10-27 05:30] LABS: BAND 2 % (0-10); EOSINOPHIL 1 % (0-4); LYMPHOCYTE 8 % (20.0-51.0); METAMYELOCYTE 2 % (0-0); MYELOCYTE 4 % (0-0); NEUTROPHILS 81 % (42.0-75.2); PLATELET ESTIMATE NORMAL (NORMAL)
--- NOTE | 2019-10-27 05:30 | NUR ---
PT AROUSES EASILY TO NURSE'S VOICE AND LOOKS AROUND AND PULLS AGAINST RESTRAINTS. SPOKE WITH RT, NO WEANING TRAIL THIS AM R/T HIGH PEEPS AND HIGH FIO2 STILL AT THIS TIME. POX 92%.
[2019-10-27 06:08] LABS: ARTERIAL BLD GAS O2 SATURATION 95.4 % (92-100); ARTERIAL BLD GAS TCO2 CT 31.8; ARTERIAL BLOOD GAS BASE EXCESS 4.9 (-2-2); ARTERIAL BLOOD GAS HCO3 30.3 meq/L (22-26); ARTERIAL BLOOD GAS PCO2 47.9 mmHg (35-45); ARTERIAL BLOOD GAS PO2 78.7 mmHg (80-100); ARTERIAL BLOOD GAS pH 7.42 (7.35-7.45)
--- NOTE | 2019-10-27 09:29 | NUR ---
ordered to advance OG tube by 10cm. Tube advanced down to 80cm. States no need for repeat chest xray.
--- NOTE | 2019-10-27 11:58 | NUR ---
IF PTS BG AT 1800 IS GREATER THAN 200 START ON INSULIN GTT PER .
--- NOTE | 2019-10-27 17:00 | NUR ---
Pt able to move all extremities. Pt follows commands and shakes head yes or no appropriatly. Pt started becoming restless and sedation restarted.
--- NOTE | 2019-10-27 19:00 | NUR ---
RECEIVED REPORT FROM NEHA WEINER. PT RESTING EASILY ON CURRENT VENT SETTINGS: AC, TV 450, PEEP 14, RATE 15, FIO2 60%. FC PATENT AND DRAINING TO GRAVITY. VSS. SEE GTT FLOWSHEET.
--- NOTE | 2019-10-27 19:01 | NUR ---
Edger Machine Helper this am stated d/t pts propofol dosing to have TF at 45ml and start with prosource tid.
--- NOTE | 2019-10-27 21:20 | NUR ---
RN NOTED WHEN ABOUT TO GIVE NIGHT TIME MEDICATIONS AND PROSOURCE, THAT PT HAD A MODERATE AMOUNT OF TF ON CHEST AND IN MOUTH. SHU PHYSICIAN NOTIFIED AND DISCUSSED THAT THE TF AND RESIDUALS HAD BEEN ADRESSED LAST NIGHT AND TODAY BY [facility]. UNFORTUNATELY, PT IS STILL STRUGGLING TO TOLERATE EVEN AFTER CHANGE IN TF/PROSOURCE AND ADVANCEMENT TO 80CM OF OGT. PHYSICIAN STATES TO LEAVE TF ON HOLD FOR TONIGHT AND TO NOT GIVE PROSOURCE TONIGHT BUT IS OKAY TO GIVE MEDICATIONS AND WATER THROUGH OGT ONLY TONIGHT. NEW ORDERS FOR RADIOLOGY ORDERED FOR AM PER PHYSICIAN. INSULIN GTT ON HOLD AT THIS TIME R/T PROTOCOL. AWAITING 30 MINS FOR RECHECK.
--- NOTE | 2019-10-27 21:52 | NUR ---
FSBS RECHECKED AFTER 30 MIN HOLD, FOUND TO BE 136. WITH TF ON HOLD, SHU PHYSICIAN NOTIFIED OF FSBS AND STATES TO PUT INSULIN GTT ON HOLD FOR TONIGHT AND CHANGED TO Q4HR FSBS WITH LOW DOSE SLIDING SCALE UNTIL TF OR ENTERAL FEEDINGS RESUMED NECESSARY. SEE MAR.
[2019-10-28] VITALS (556 sets, daily range): BP systolic 123–160; BP diastolic 60–106; PULSE 61–109; TEMP 98.4–99; O2SAT 87–100
[2019-10-28 04:47] LABS: ARTERIAL BLD GAS O2 SATURATION 96.4 % (92-100); ARTERIAL BLD GAS TCO2 CT 38.5; ARTERIAL BLOOD GAS BASE EXCESS 10.3 (-2-2); ARTERIAL BLOOD GAS HCO3 36.7 meq/L (22-26); ARTERIAL BLOOD GAS PCO2 57.8 mmHg (35-45); ARTERIAL BLOOD GAS PO2 89.3 mmHg (80-100); ARTERIAL BLOOD GAS pH 7.42 (7.35-7.45)
--- NOTE | 2019-10-28 05:45 | NUR ---
ACCORDING TO RT, NO WEANING TRIAL THIS AM. XRAY AT BEDSIDE, PT BARELY AROUSES WHEN MOVED AROUND THE BED TO PLACE XRAY BOARD BEHIND BACK. DECREASED SEDATION FOR MORE PT AROUSAL AT THIS TIME. VSS.
[2019-10-28 07:00] LABS: HEMATOCRIT 37.2 % (37.0-47.0); HEMOGLOBIN 11.6 g/dl (12.5-16.0); MEAN CELL VOLUME 93 fl (80.0-100.0); MEAN CORPUSCULAR HEMOGLOBIN 29 pg (27.0-31.0); MEAN CORPUSCULAR HGB CONC 31 g/dl (33.0-37.0); MEAN PLATELET VOLUME 12.1 fl (7.4-10.4); PLATELET COUNT 199 K/mm3 (130-400); RED BLOOD COUNT 4.01 M/mm3 (4.10-5.30); REDCELL DISTRIBUTION WIDTH-CV 15.2 % (11.5-14.5)
[2019-10-28 07:05] LABS: ALBUMIN 3.4 gm/dL (3.5-5.0); BILIRUBIN,TOTAL 0.5 mg/dL (0.0-1.0); CALCIUM 8.9 mg/dL (8.4-10.2); CREATININE, serum 0.75 (0.52-1.25); MAGNESIUM 2.4 mg/dL (1.6-2.3); PHOSPHOROUS 4.5 mg/dL (2.5-4.5); POTASSIUM 4.8 mmol/L (3.4-5.0); TOTAL PROTEIN 6.8 gm/dL (6.4-8.2)
[2019-10-28 07:12] LABS: PRE ALBUMIN 20.2 mg/dL (17.6-36.0)
--- NOTE | 2019-10-28 08:00 | NUR ---
Tube feeds restarted per Dr. Real. Resume insulin gtt if needed as well. Patient to try CPAP trial with decreased sedation at this time.
[2019-10-28 09:56] LABS: BAND 3 % (0-10); LYMPHOCYTE 18 % (20.0-51.0); METAMYELOCYTE 6 % (0-0); MYELOCYTE 1 % (0-0); NEUTROPHILS 64 % (42.0-75.2)
[2019-10-28 09:57] LABS: ANISOCYTOSIS 1+; HYPOCHROMIA 1+; PLATELET ESTIMATE NORMAL (NORMAL)
--- NOTE | 2019-10-28 14:02 | NUR ---
Event Technician contacted Feroz at [facility] and faxed updates. SW will continue to follow.
--- NOTE | 2019-10-28 20:00 | NUR ---
PATIENT OPENS EYES UPON HEARING STAFF COME INTO ROOM. SHAKES HEAD BACK AND FORTH AND SHAKES LEFT FOOT. PATIENT CALMS SELF UPON COMMUNICATION FROM STAFF.
[2019-10-29] VITALS (638 sets, daily range): BP systolic 101–152; BP diastolic 61–87; PULSE 76–109; TEMP 98.3–99.2; O2SAT 74–100
--- NOTE | 2019-10-29 | NUR ---
SON CALLED AND TALKED TO PATIENT VIA VIDEO TABLET, PATIENT WOULD REACT TO SON'S VOICE, BEING AWAKE WAS BRIEF, COMMUNCATIONS LASTED FOR 20 MINUTES
[2019-10-29 05:41] LABS: ARTERIAL BLD GAS O2 SATURATION 94.6 % (92-100); ARTERIAL BLD GAS TCO2 CT 34.5; ARTERIAL BLOOD GAS BASE EXCESS 8.4 (-2-2); ARTERIAL BLOOD GAS HCO3 33.1 meq/L (22-26); ARTERIAL BLOOD GAS PCO2 45.8 mmHg (35-45); ARTERIAL BLOOD GAS PO2 72.5 mmHg (80-100); ARTERIAL BLOOD GAS pH 7.48 (7.35-7.45)
[2019-10-29 07:31] LABS: CALCIUM 9.1 mg/dL (8.4-10.2); CREATININE, serum 0.79 (0.52-1.25); MAGNESIUM 2.3 mg/dL (1.6-2.3); PHOSPHOROUS 5.3 mg/dL (2.5-4.5); POTASSIUM 4.5 mmol/L (3.4-5.0)
[2019-10-29 08:20] LABS: HEMATOCRIT 39.8 % (37.0-47.0); HEMOGLOBIN 12.9 g/dl (12.5-16.0); MEAN CELL VOLUME 91 fl (80.0-100.0); MEAN CORPUSCULAR HEMOGLOBIN 29 pg (27.0-31.0); MEAN CORPUSCULAR HGB CONC 32 g/dl (33.0-37.0); MEAN PLATELET VOLUME 11.7 fl (7.4-10.4); PLATELET COUNT 241 K/mm3 (130-400); RED BLOOD COUNT 4.39 M/mm3 (4.10-5.30); REDCELL DISTRIBUTION WIDTH-CV 15.1 % (11.5-14.5)
[2019-10-29 08:34] LABS: ARTERIAL BLD GAS O2 SATURATION 95.4 % (92-100); ARTERIAL BLD GAS TCO2 CT 38.6; ARTERIAL BLOOD GAS BASE EXCESS 10.5 (-2-2); ARTERIAL BLOOD GAS HCO3 36.9 meq/L (22-26); ARTERIAL BLOOD GAS PCO2 56.2 mmHg (35-45); ARTERIAL BLOOD GAS PO2 78.2 mmHg (80-100); ARTERIAL BLOOD GAS pH 7.44 (7.35-7.45)
--- NOTE | 2019-10-29 08:45 | NUR ---
PICC intact right upper arm with sterile dressing change done with insertion site cleansed with chloraprep x 1, chlorhexidine impregnated disk applied, skin prep, stat lock, and tegaderm applied. no signs or symptoms of IV complications noted. continue to monitor.
[2019-10-29 09:08] LABS: PATHOLOGY DIFF REVIEW OK
--- NOTE | 2019-10-29 09:40 | NUR ---
Sedation on hold per Dr. Real at 0719. Patient extubated at 0933. Tolerated well. On BIPAP now per Dr. Real. Will repeat ABG in 3 hours per order.
[2019-10-29 10:13] LABS: BAND 7 % (0-10); EOSINOPHIL 2 % (0-4); LYMPHOCYTE 31 % (20.0-51.0); METAMYELOCYTE 2 % (0-0); NEUTROPHILS 50 % (42.0-75.2)
[2019-10-29 10:14] LABS: PLATELET ESTIMATE NORMAL (NORMAL)
[2019-10-29 12:58] LABS: ARTERIAL BLD GAS O2 SATURATION 95.3 % (92-100); ARTERIAL BLD GAS TCO2 CT 36.7; ARTERIAL BLOOD GAS BASE EXCESS 9.2 (-2-2); ARTERIAL BLOOD GAS HCO3 35.1 meq/L (22-26); ARTERIAL BLOOD GAS PO2 78.6 mmHg (80-100); ARTERIAL BLOOD GAS pH 7.44 (7.35-7.45)
--- NOTE | 2019-10-29 16:38 | NUR ---
Brick Stacker contacted Feroz at [facility] who advised they received updates yesterday and are still able to accept. SW contacted patient's son, Jaden to provide update. SW will continue to follow.
[2019-10-30] VITALS (390 sets, daily range): BP systolic 113–123; BP diastolic 67–70; PULSE 92–113; TEMP 98.3–99.7; O2SAT 83–100
[2019-10-30 05:15] LABS: HEMATOCRIT 41.3 % (37.0-47.0); HEMOGLOBIN 13.1 g/dl (12.5-16.0); MEAN CELL VOLUME 91 fl (80.0-100.0); MEAN CORPUSCULAR HEMOGLOBIN 29 pg (27.0-31.0); MEAN CORPUSCULAR HGB CONC 32 g/dl (33.0-37.0); MEAN PLATELET VOLUME 11.2 fl (7.4-10.4); PLATELET COUNT 223 K/mm3 (130-400); RED BLOOD COUNT 4.52 M/mm3 (4.10-5.30); REDCELL DISTRIBUTION WIDTH-CV 15.2 % (11.5-14.5)
[2019-10-30 05:21] LABS: CALCIUM 9.3 mg/dL (8.4-10.2); CREATININE, serum 0.83 (0.52-1.25); MAGNESIUM 2.2 mg/dL (1.6-2.3); POTASSIUM 4.4 mmol/L (3.4-5.0)
[2019-10-30 05:40] LABS: ARTERIAL BLD GAS O2 SATURATION 94.3 % (92-100); ARTERIAL BLOOD GAS BASE EXCESS -3.9 (-2-2); ARTERIAL BLOOD GAS PCO2 33.1 mmHg (35-45); ARTERIAL BLOOD GAS PO2 75.5 mmHg (80-100)
--- NOTE | 2019-10-30 06:00 | NUR ---
PT has had consistent pain throughout the night. Discussed pain medication options including staggering different pain medications for patient so that she had consistent coverage for pain. PT agreed with plan but was still requesting pain medication within 30min-1hr of administration. However, after asking for pain medication or stating that "nothing is working for my pain!", PT would fall asleep within 2 minutes of stating this or asking for more meds. Repositioning of leg, positive encouragement were used in supplement to medication. PT refused turning throughout the night.
[2019-10-30 06:06] LABS: BAND 8 % (0-10); EOSINOPHIL 2 % (0-4); HYPOCHROMIA 1+; LYMPHOCYTE 30 % (20.0-51.0); NEUTROPHILS 56 % (42.0-75.2); PLATELET ESTIMATE NORMAL (NORMAL)
[2019-10-30 06:07] LABS: ANISOCYTOSIS 1+
--- NOTE | 2019-10-30 07:00 | NUR ---
Report given to NEHA Beaulieu.
--- NOTE | 2019-10-30 07:19 | NUR ---
Report received from Laura SOLOMON and care resumed.
--- NOTE | 2019-10-30 07:29 | NUR ---
Dr Real in to see pt at this time. New orders received.
--- NOTE | 2019-10-30 08:53 | NUR ---
Dr Clemons in to see pt at this time. Pt was given prn pain meds as requested and then placed back on bipap to rest. Will continue to follow.
--- NOTE | 2019-10-30 11:25 | NUR ---
Warfarin Initial Dosing Pharmacy Note Ordering Provider: Romeo Clemons MD Indication: VTE/PE Treatment Recommendation: Start Warfarin 7.5 mg po qHS. Warfarin is being bridged with heparin drip. Pharmacy will continue to monitor daily INR levels. Goal INR: 2-3
--- NOTE | 2019-10-30 12:26 | NUR ---
Initial visit; Patient thanked Enrollment Consultant for looking in on her, visiting and offering prayer and God's blessings. Patient would like Enrollment Consultant to look in on her again.
--- NOTE | 2019-10-30 16:08 | NUR ---
Cyber Workforce Developer And Manager was notified by Hospitalist that patient is ready for discharge if [facility] has bed availability. MAGGY contacted Feroz at [facility] who advised there is a bed available and requested pickling solution maker time for 1600. MAGGY met with patient who is agreeable to discharge plan and signed consent form for transfer. MAGGY contacted patient's son, Jaden to update on discharge and Jaden reports he has already been in contact with Feroz and is in agreement. MAGGY set up transport with [facility] with a pickling solution maker time of 1600. MAGGY provided report # to RN then faxed discharge orders to [facility]. MAGGY placed completed EMS forms on patient's chart. No additional needs at this time.
--- NOTE | 2019-10-30 16:15 | NUR ---
Report called to [facility]. EMS here and report also given. Pt discharged at 1615 to [facility].
== END 2019-10-30 16:15 | DRG 485 ==
LOC: COL.ER 18:35 → SURG 20:39 → ICU 10-24 13:08
PROVIDERS: Emergency Medicine; Internal Medicine; Internal Medicine Pulmonary Disease; Physician Assistant; ADMIT Hospitalist
PROC: 02HV33Z Insertion of Infusion Device into Superior Vena Cava, Percutaneous Approach (ICD-10-PCS; principal; 2019-10-24)
PROC: 0BH17EZ Insertion of Endotracheal Airway into Trachea, Via Natural or Artificial Opening (ICD-10-PCS; 2019-10-24)
PROC: 5A1945Z Respiratory Ventilation, 24-96 Consecutive Hours (ICD-10-PCS; 2019-10-24)
PROC: 0SBD4ZZ Excision of Left Knee Joint, Percutaneous Endoscopic Approach (ICD-10-PCS; 2019-10-26)
DX: T84.54XA Infection and inflammatory reaction due to internal left knee prosthesis, initial encounter (principal); J96.21 Acute and chronic respiratory failure with hypoxia; J96.22 Acute and chronic respiratory failure with hypercapnia; A41.2 Sepsis due to unspecified staphylococcus; Z68.44 Body mass index [BMI] 60.0-69.9, adult; E66.01 Morbid (severe) obesity due to excess calories; K21.9 Gastro-esophageal reflux disease without esophagitis; M81.0 Age-related osteoporosis without current pathological fracture; N32.81 Overactive bladder; F32.9 Major depressive disorder, single episode, unspecified; F41.9 Anxiety disorder, unspecified; G47.33 Obstructive sleep apnea (adult) (pediatric); E03.9 Hypothyroidism, unspecified; R79.89 Other specified abnormal findings of blood chemistry; Y83.8 Other surgical procedures as the cause of abnormal reaction of the patient, or of later complication, without mention of misadventure at the time of the procedure; M79.7 Fibromyalgia; G89.29 Other chronic pain; Z90.710 Acquired absence of both cervix and uterus; Z98.84 Bariatric surgery status; Z87.891 Personal history of nicotine dependence; R73.03 Prediabetes
CPT/HCPCS: 99222-AI; 99233-AI; 99239; A4314; C1751; C9113; J0696; J1170; J1644; J1815; J1885; J2185; J2250; J2270; J2405; J2543; J2704; J2920; J3010; J3370; J3475; J7030; J7040; J7050; J7512

== ENCOUNTER 2020-02-23 18:19 | Inpatient (IN) | payer MEDICARE, MEDICAID ==
[2020-02-23] VITALS (35 sets, daily range): O2SAT 94–99
[~2020-02-23] VITALS: Ht 162.6 cm; Wt 178.0 kg
[~2020-02-23 18:19] MED LIST changes: +ABILIFY 10MG TA10 MG PO; +ALEVE 220MG220 MG PO; +ANTIVERT 25MG25 MG PO; +ATARAX 10MG10 MG/TAB PO; +AZO-CRANBERRY450 MG; +MYCELEX10 MG/TAB MM; +NAPROSYN500 MG PO; +PROTONIX 40MG T40 MG PO; +RT ADVAIR 228 DISKUS IH; +SINGULAIR 110 MG/TAB PO; +SYSTANE 0.4%-0.1 SOL OP; +VENTOLIN0.09 MG IH; -VOLTAREN GEL 1%1 TU; +VOLTAREN GEL 1%1 TU TOP; +WOMEN'S DAILY F1 TAB PO
[2020-02-23 18:42] LABS: BASO % 0.7 % (0.0-2.0); EOS # 0.2 (0.0-0.7); EOS % 3.3 % (0-4.0); GRAN # 3.6 (1.4-6.5); GRAN % 67.2 % (42.2-75.2); HEMOGLOBIN 10.9 g/dl (12.5-16.0); LYMPH % 18.6 % (20.0-51.0); MEAN CELL VOLUME 96 fl (80.0-100.0); MEAN CORPUSCULAR HEMOGLOBIN 29 pg (27.0-31.0); MEAN CORPUSCULAR HGB CONC 30 g/dl (33.0-37.0); MONO # 0.5 (0.1-0.6); MONO % 9.8 % (1.7-9.3); PLATELET COUNT 267 K/mm3 (130-400); RED BLOOD COUNT 3.74 M/mm3 (4.10-5.30); REDCELL DISTRIBUTION WIDTH-CV 14.5 % (11.5-14.5)
[2020-02-23 18:43] LABS: HEMATOCRIT 35.9 % (37.0-47.0)
[2020-02-23 18:49] LABS: ALANINE AMINOTRANSFERASE 20 U/L (4-34); ALKALINE PHOSPHATASE 144 U/L (50-136); ANION GAP 5 mmol/L (7-16); AST,SGOT 26 U/L (15-37); BILIRUBIN,TOTAL 0.4 mg/dL (0.0-1.0); BLOOD UREA NITROGEN 17 mg/dL (7-17); C-REACTIVE PROTEIN 2.3 mg/dL (0.0-0.9); CALCIUM 8.7 mg/dL (8.4-10.2); CARBON DIOXIDE 37 mmol/L (22-30); CHLORIDE 99 mmol/L (98-107); CREATININE, serum 0.91 (0.52-1.25); GLUCOSE 172 mg/dL (74-106); POTASSIUM 4.7 mmol/L (3.4-5.0); SODIUM 141 mmol/L (137-145); TOTAL PROTEIN 7.3 gm/dL (6.4-8.2)
[2020-02-23 18:52] LABS: COLLECTION METHOD CATHETER
[2020-02-23 18:58] LABS: TROPONIN-I < 0.012 ng/mL (0.000-0.035)
[2020-02-23 18:58] LABS: ARTERIAL BLD GAS O2 SATURATION 90.3 % (92-100); ARTERIAL BLD GAS TCO2 CT 36.3; ARTERIAL BLOOD GAS BASE EXCESS 4.4 (-2-2); ARTERIAL BLOOD GAS HCO3 33.9 meq/L (22-26); ARTERIAL BLOOD GAS pH 7.24 (7.35-7.45)
[2020-02-23 19:00] LABS: MUCOUS Present /lpf; PH 5 (5-8); SQUAMOUS EPITHELIAL 0-2 /hpf; URINE APPEARANCE Clear; URINE BACTERIA None Seen /hpf; URINE BILIRUBIN Negative (NEGATIVE); URINE BLOOD Negative (NEGATIVE); URINE COLOR Yellow; URINE GLUCOSE Negative (NEGATIVE); URINE KETONE Negative (NEGATIVE); URINE LEUKOCYTE ESTERASE Negative (NEGATIVE); URINE NITRATE Negative (NEGATIVE); URINE PROTEIN(semi-quant) Negative (NEGATIVE); URINE RBC 0-2 /hpf; URINE UROBILINOGEN >=4.0 mg/dL (NEGATIVE)
[2020-02-23 20:06] LABS: PROTHROMBIN TIME 10.9 SECONDS (9.7-12.8)
[2020-02-23] MEDS ORDERED: ROXICODONE 55 MG/TAB PO (20:46)
[2020-02-23] MEDS ORDERED: MELATIN 3 MG-11 TAB PO (20:47)
[2020-02-23] MEDS ORDERED: OXYCONTIN15 MG PO (20:47)
[2020-02-23] MEDS ORDERED: IPRATROPIUM BROM3 M1 IH (20:49)
[2020-02-23] MEDS ORDERED: ATARAX 25MG25 MG/TAB PO (20:51)
[2020-02-23] MEDS ORDERED: ABILIFY5 MG PO (20:52)
[2020-02-23] MEDS ORDERED: PROTONIX 40MG T40 MG PO (20:56)
[2020-02-23] MEDS ORDERED: INSULIN LI100 UNIT/2 SQ (20:56)
[2020-02-23] MEDS ORDERED: LYRICA200 MG PO (20:58)
[2020-02-23] MEDS ORDERED: LEVOXYL0.2 MG PO (20:58)
[2020-02-23] MEDS ORDERED: MYRBETR50MG PO (20:59)
[2020-02-23] MEDS ORDERED: ZYRTEC 10MG10 MG PO (21:00)
[2020-02-23 21:01] LABS: ARTERIAL BLD GAS O2 SATURATION 93.7 % (92-100); ARTERIAL BLD GAS TCO2 CT 37.2; ARTERIAL BLOOD GAS BASE EXCESS 5.4 (-2-2); ARTERIAL BLOOD GAS HCO3 34.8 meq/L (22-26); ARTERIAL BLOOD GAS PCO2 80.9 mmHg (35-45); ARTERIAL BLOOD GAS PO2 79.2 mmHg (80-100); ARTERIAL BLOOD GAS pH 7.25 (7.35-7.45)
[2020-02-23] MEDS ORDERED: WELLBUTRIN 75MG75 MG PO (21:01)
[2020-02-23] MEDS ORDERED: LIORESAL20 MG PO (21:02)
--- NOTE | 2020-02-23 21:55 | NUR ---
AT [address] MARK TO CLARIFY BIPAP SETTINGS FOR THE PATIENT. WHEN TELLING CURRENT SETTINGS AND PREVIOUS SETTING TO DR. MARK HE WANTED THE PATIENT TO BE 20/6 WITH A RATE OF 22 AND REPEAT ABG IN THE MORNING. AT 2151 PATIENT IS NOW SWITCHED OVER TO THOSE SETTINGS.
--- NOTE | 2020-02-23 22:05 | NUR ---
Report received from NEHA Argueta from ED.
--- NOTE | 2020-02-23 23:30 | NUR ---
Pt arrived via stretcher with ED nurse and RT staff member at 2230. Personal belongings with pt to include bag, purse, voice recorder, glasses, wallet with $71 dollars acevedo (counted with pt and this nurse). Pt was assisted into ICU04 bed X3 staff members. Expressed the need to pee so external cath was put into place after rob care was provided. Skin on posterior side assessed at this time. Pt completed oral care with RT at this time. Reports dentures are in, upper and lower, although declined removal. Pt A&O with Neuro assessment WNL. Verified full code status with pt. Pt reports living with roommate at home. Use of a walker for ambulation at baseline. Pt unable to provide last administration times for medications per list that was provided to ED. Pt reports to this nurse that all medications were taken as prescribed with last doses completed this afternoon, including Oxycodone PRN. Admission B reviewed with pt.
[2020-02-23] MEDS ORDERED: HYDROCORTISO28.35 GM TOP (23:42)
[2020-02-23] MEDS ORDERED: CEPHALEXIN250 M1 PO (23:43)
[2020-02-23] MEDS ORDERED: LOVENOX 4040 MG/0.4 SQ (23:44)
[2020-02-24] VITALS (356 sets, daily range): BP systolic 139–158; BP diastolic 60–77; PULSE 61–95; TEMP 97.6–98.2; O2SAT 87–100
[2020-02-24 04:43] LABS: ARTERIAL BLD GAS O2 SATURATION 96.9 % (92-100); ARTERIAL BLD GAS TCO2 CT 38.7; ARTERIAL BLOOD GAS BASE EXCESS 7.8 (-2-2); ARTERIAL BLOOD GAS HCO3 36.4 meq/L (22-26); ARTERIAL BLOOD GAS PO2 92.6 mmHg (80-100); ARTERIAL BLOOD GAS pH 7.31 (7.35-7.45)
[2020-02-24 04:44] LABS: ARTERIAL BLOOD GAS PCO2 74.5 mmHg (35-45)
--- NOTE | 2020-02-24 04:53 | NUR ---
DEMETRIO SCHULTZ IS NO LONGER IN THE HOUSE TO REPORT ABG. CALLED SHU AND SPOKE TO PHYSICAN AND REPORTED ABG.
[2020-02-24 06:26] LABS: ALBUMIN 3.9 gm/dL (3.5-5.0); BILIRUBIN,TOTAL 0.5 mg/dL (0.0-1.0); CALCIUM 8.9 mg/dL (8.4-10.2); CREATININE, serum 0.8 (0.52-1.25); POTASSIUM 5.5 mmol/L (3.4-5.0); TOTAL PROTEIN 7.1 gm/dL (6.4-8.2)
[2020-02-24 06:32] LABS: BASO % 0.2 % (0.0-2.0); EOS % 0.2 % (0-4.0); GRAN # 4.2 (1.4-6.5); GRAN % 89.9 % (42.2-75.2); HEMOGLOBIN 10.8 g/dl (12.5-16.0); LYMPH # 0.4 (1.2-3.4); LYMPH % 8.2 % (20.0-51.0); MEAN CELL VOLUME 97 fl (80.0-100.0); MEAN CORPUSCULAR HEMOGLOBIN 30 pg (27.0-31.0); MEAN CORPUSCULAR HGB CONC 31 g/dl (33.0-37.0); MEAN PLATELET VOLUME 11.2 fl (7.4-10.4); MONO % 0.9 % (1.7-9.3); PLATELET COUNT 228 K/mm3 (130-400); RED BLOOD COUNT 3.61 M/mm3 (4.10-5.30); REDCELL DISTRIBUTION WIDTH-CV 14.2 % (11.5-14.5)
--- NOTE | 2020-02-24 09:57 | NUR ---
Usha with [facility] reports they have the patient for PT/OT/Nursing services.
--- NOTE | 2020-02-24 10:51 | NUR ---
The patient is being tested for COVID and is awaiting the results. SW contacted the patient's phone to complete intake. The patient lives in [place] with her roommate, Derrick. She reports needing assistance with bathing and has a cane, walker, home oxygen and a bipap from [employer]. She receives home health services from [facility] for PT/OT/half-way and has services from [facility]. The patient's primary care provider is DEMETRIO Marie. The patient has a DPOA-HC in EMR. The patient states that she would like to complete a new DPOA-HC that designates her niece, Alina (ph#[phone]). SW collaborated with the patient's RN. A new DPOA-HC form was provided to the patient. The patient designated her niece, Alina, and her son, Jaden (ph#[phone]), as the alternate. MAGGY and the patient's RN, Nicole, witnessed the patient's signature. SW placed the document on the patient's chart. The patient was at [facility] in October. The patient states that she was at [facility] for a couple of months and then she was discharged from there to [facility] for a skilled stay. The patient states that she was just discharged from there a few weeks ago. The patient states that she has not been able to bathe herself at home. SW discussed SNF upon discharge. The patient states that she would be interested in SNF. The patient was interested in a list of the facilities in [place]. Medicare.gov's list of SNFs in [place] was provided to the patient. MAGGY then contacted and reviewed the above information with the patient's niece, Alina. Alina is also in agreement to SNF. Alian states that things were not set up for her upon discharge from [facility] and that things ended up falling apart at home. Alina states that she will talk to the patient and see what her preferences are. SW to continue to follow.
[2020-02-24 17:06] LABS: ARTERIAL BLD GAS O2 SATURATION 94.5 % (92-100); ARTERIAL BLD GAS TCO2 CT 33.9; ARTERIAL BLOOD GAS BASE EXCESS 7.6 (-2-2); ARTERIAL BLOOD GAS HCO3 32.5 meq/L (22-26); ARTERIAL BLOOD GAS PCO2 46.9 mmHg (35-45); ARTERIAL BLOOD GAS pH 7.46 (7.35-7.45)
--- NOTE | 2020-02-24 23:56 | NUR ---
PT NOW ON BIPAP.
[2020-02-25] VITALS (836 sets, daily range): BP systolic 155–167; BP diastolic 57–81; PULSE 57–80; TEMP 97–98.3; O2SAT 89–100
--- NOTE | 2020-02-25 05:36 | NUR ---
PT ON A BARIATRIC BED, UNABLE TO GET WEIGHT.
--- NOTE | 2020-02-25 07:08 | NUR ---
REPORT GIVEN TO NEHA ALVARENGA.
--- NOTE | 2020-02-25 10:14 | NUR ---
The patient is to tentatively transfer up to the medical/surgical floor today. Her COVID results are still pending. SW contacted the patient to follow up on preference for SNF. The patient chose 1) [facility] 2) [facility]. The patient requests that the facilities have a large bed white for her to use while there. SW contacted and faxed a referral to both facilities. SW awaiting their screens.
--- NOTE | 2020-02-25 10:41 | NUR ---
[facility] Nurse was able to stand outside of door and prayer for patient.
--- NOTE | 2020-02-25 11:09 | NUR ---
The patient reports that she has changed her second preference to [facility]. MAGGY confirmed this with the patient. MAGGY attempted to contact Anca at [facility]. MAGGY left her a voicemail and faxed over the referral.
--- NOTE | 2020-02-25 13:55 | NUR ---
Jennifer, at [facility], reports that they have declined the patient.
--- NOTE | 2020-02-25 14:35 | NUR ---
MAGGY received a phone call from the patient's niece/DPOA-HC, Alina. MAGGY updated Alina on the patient's preferences for SNF and on the status of referrals. Alina was supportive of the patient's preferences. Alina would like to go ahead and proceed with the referral to [facility], since [facility] cannot take. She states that she also was not very happy with [facility], during the patient's last stay there. MAGGY updated Tuan at [facility].
--- NOTE | 2020-02-25 20:25 | NUR ---
PATIENT ARRIVE TO ROOM PER BARIBED FROM ICU, ACCOMPANIED BY ICU NURSE AND basket sorter. PATIENT WITH NO CURRENT NEEDS REPORTED.
[2020-02-26] VITALS (7 sets, daily range): BP systolic 143–158; BP diastolic 61–74; PULSE 72–81; TEMP 97.7–98.5
[2020-02-26 06:57] LABS: BASO % 0.4 % (0.0-2.0); EOS # 0.1 (0.0-0.7); EOS % 0.6 % (0-4.0); GRAN # 5.8 (1.4-6.5); GRAN % 75.1 % (42.2-75.2); HEMOGLOBIN 10.9 g/dl (12.5-16.0); LYMPH # 1.1 (1.2-3.4); LYMPH % 13.7 % (20.0-51.0); MEAN CELL VOLUME 93 fl (80.0-100.0); MEAN CORPUSCULAR HEMOGLOBIN 30 pg (27.0-31.0); MEAN CORPUSCULAR HGB CONC 32 g/dl (33.0-37.0); MEAN PLATELET VOLUME 11.1 fl (7.4-10.4); MONO # 0.8 (0.1-0.6); MONO % 9.9 % (1.7-9.3); PLATELET COUNT 259 K/mm3 (130-400); RED BLOOD COUNT 3.68 M/mm3 (4.10-5.30); REDCELL DISTRIBUTION WIDTH-CV 14.7 % (11.5-14.5)
[2020-02-26 07:00] LABS: HEMATOCRIT 34.1 % (37.0-47.0)
[2020-02-26 07:25] LABS: CALCIUM 9.1 mg/dL (8.4-10.2); CREATININE, serum 0.99 (0.52-1.25); MAGNESIUM 2.1 mg/dL (1.6-2.3); POTASSIUM 3.9 mmol/L (3.4-5.0)
--- NOTE | 2020-02-26 10:00 | NUR ---
Patient alert and oriented, answers questions appropriately. See assessment. Lungs decreased in bases, clear in upper lobes. Oxygen at 3l/nc. Encouraged CDB. Purewick in place, patient refuses transfer to [facility], stating she doesn't want to get OOB. Encouraged activity. No c/o at this time.
--- NOTE | 2020-02-26 11:39 | NUR ---
Federal Java Developer met with the patient to discuss sending other referrals. SW provided Medicare.gov's list. The patient is agreeble to sending referrals to [facility] and to [facility]. Referrals sent.
--- NOTE | 2020-02-26 16:40 | NUR ---
Diana with [facility] reports they cannot accomodate the patient due to the max weigh limit they can take is 350 lbs. Nusrat with [facility] reports they cannot accomodate the patient.
--- NOTE | 2020-02-26 16:47 | NUR ---
Referrals were faxed to [facility]ia [facility]AS[facility], [facility], [facility], and [facility] at [place].
--- NOTE | 2020-02-26 20:00 | NUR ---
Pt currently resting in bed. Pt is currently talking on the phone. Pt was repostioned at this time. Pt legs are also elevated on pillows. Pt was offered a snack when I bring in her night medications. Pt stated that she would like a snack before bed. Pt has been drinking fluids well.
--- NOTE | 2020-02-27 03:10 | NUR ---
Pt currently resting in bed .Pt was repositioned at this time. Pt has her call light within reach. Pt only requested water at this time and she was given fresh water.
[2020-02-27 05:05] VITALS: BP 139/75; PULSE 89; TEMP 97.6
--- NOTE | 2020-02-27 06:00 | NUR ---
Pt was repostioned this morning. Pt had a no lidocaine patch placed at this time. Pt has her call light within reach. Pt no longer has on her Bi Pap but does have on her oxygen at this time.
[2020-02-27 07:25] LABS: BASO % 0.6 % (0.0-2.0); EOS # 0.2 (0.0-0.7); EOS % 4.9 % (0-4.0); GRAN # 2.9 (1.4-6.5); GRAN % 60.4 % (42.2-75.2); HEMATOCRIT 37.1 % (37.0-47.0); HEMOGLOBIN 11.6 g/dl (12.5-16.0); LYMPH % 20.6 % (20.0-51.0); MEAN CELL VOLUME 94 fl (80.0-100.0); MEAN CORPUSCULAR HEMOGLOBIN 29 pg (27.0-31.0); MEAN CORPUSCULAR HGB CONC 31 g/dl (33.0-37.0); MONO # 0.6 (0.1-0.6); MONO % 13.1 % (1.7-9.3); PLATELET COUNT 255 K/mm3 (130-400); RED BLOOD COUNT 3.94 M/mm3 (4.10-5.30); REDCELL DISTRIBUTION WIDTH-CV 14.4 % (11.5-14.5)
[2020-02-27 07:39] LABS: ALBUMIN 4.1 gm/dL (3.5-5.0); BILIRUBIN,TOTAL 0.7 mg/dL (0.0-1.0); CREATININE, serum 0.98 (0.52-1.25)
[2020-02-27 07:40] LABS: POTASSIUM 4.3 mmol/L (3.4-5.0)
--- NOTE | 2020-02-27 08:00 | NUR ---
Patient in bed eating breakfast. Alert and oriented x 3. Assessment complete. States generalized pain at this time. BLE with erythemia, patient states chronic. Edema to BLE noted. Denies further needs at this time.
[2020-02-27 08:22] VITALS: BP 144/52; PULSE 88; TEMP 97.7
[2020-02-27 11:34] VITALS: BP 136/53; PULSE 70; TEMP 97.8
--- NOTE | 2020-02-27 14:03 | NUR ---
Jeremy from [facility] reports they cannot accept the patient for post acute rehab. Jeremy recommended sending referral to [facility] in [place]. Referral sent. MAGGY met with the patient to provide and update and to review the plan for placement. Since the patient has had denials. MAGGY discussed the need to send many referrals. She was agreeable. MAGGY has faxed referrals to: [facility], [facility], [facility], [facility], [facility], [facility], [place] in , [facility], [facility] [place], and [facility] in [place]. MAGGY faxed updates to Anca at [facility]. MAGGY contacted the above facilities to inform them of the referrals. [facility]. The patient contacted MAGGY and states she would rather not go to a correction post acute rehab.
--- NOTE | 2020-02-27 15:21 | NUR ---
Duyen with [facility] contacted this SW regarding patient updates. Updates provided.
[2020-02-27 16:18] VITALS: BP 130/53; PULSE 75; TEMP 98.1
--- NOTE | 2020-02-27 18:42 | NUR ---
Patient has done well throughout the day, has sat up on edge of bed throughout the day. Patient refuses to allow nurse to remove lidocaine patch at this time. Purewick in place, patient voiding clear yellow urine. has requested pain meds for generalized pain throughout the day, medications given per orders. Denies further needs at this time. Will report off to table games shift manager .
[2020-02-27 19:56] VITALS: BP 149/68; PULSE 75; TEMP 98.6
--- NOTE | 2020-02-27 22:00 | NUR ---
Pt currently lying in bed. Pt was assisted with a bedbath. Pt refused the clean gown she stated that it was to wrinkeled. Pt was also clean up because pt had a medium bowl movement. Pt bottom was a little red but nothing open. Pt was also clean underneath her stomach. Pt pain gel was applied to pt legs. Pt was able to take her night medications well. Pt did state that she was down today. When I asked her what was bothering her she stated that just moving to a new place she wanted to make sure she would like it. Pt also refused her eye drops, she stated thay they make her vision blurry. Pt has her call light nirmala solano.
[2020-02-28] VITALS (7 sets, daily range): BP systolic 121–150; BP diastolic 52–74; PULSE 75–111; TEMP 97.9–98.4
--- NOTE | 2020-02-28 06:50 | NUR ---
Pt was repostioned in bed and she took her morning medictions at this time. Pt pain patch was also placed at this time. Pt has her call light within reach. Reported off to NEHA Del Toro.
[2020-02-28 06:58] LABS: BASO # 0.1 (0.0-0.2); BASO % 0.9 % (0.0-2.0); EOS # 0.3 (0.0-0.7); EOS % 5.7 % (0-4.0); GRAN # 3.2 (1.4-6.5); GRAN % 60.9 % (42.2-75.2); HEMATOCRIT 38.5 % (37.0-47.0); HEMOGLOBIN 12.1 g/dl (12.5-16.0); LYMPH # 1.1 (1.2-3.4); LYMPH % 20.8 % (20.0-51.0); MEAN CELL VOLUME 92 fl (80.0-100.0); MEAN CORPUSCULAR HEMOGLOBIN 29 pg (27.0-31.0); MEAN CORPUSCULAR HGB CONC 31 g/dl (33.0-37.0); MEAN PLATELET VOLUME 11.1 fl (7.4-10.4); MONO # 0.6 (0.1-0.6); MONO % 11.3 % (1.7-9.3); PLATELET COUNT 276 K/mm3 (130-400)
[2020-02-28 07:00] LABS: CALCIUM 9.1 mg/dL (8.4-10.2); CREATININE, serum 0.89 (0.52-1.25); POTASSIUM 4.5 mmol/L (3.4-5.0)
--- NOTE | 2020-02-28 07:51 | NUR ---
Patient in bed eating breakfast. Alert and oriented x 3. Assessment complete. Purwick in place with clear yellow urine. INT to right forarm/wrist without complications. Patient states pain 6/10, generalized; medications given per orders. Encouraged increased activity. Denies further needs at this time.
--- NOTE | 2020-02-28 08:24 | NUR ---
[facility] was contacted by [facility] and she cannot accommodate the patient. SW was contacted by [facility] [place] reports they cannot meet the patient's needs. Anca from [facility] reports they cannot find a physician to follow along with the patient and cannot accept her.
--- NOTE | 2020-02-28 08:48 | NUR ---
[facility] reports she cannot take the patient for post acute rehab.
--- NOTE | 2020-02-28 09:16 | NUR ---
Corin from [facility] reports they cannot accept the patient for post acute rehab.
--- NOTE | 2020-02-28 09:24 | NUR ---
Balance Staff Staker contacted Charlotte with [facility] regarding referral. She reports they are taking patients and will be happy to have her team review the referral. Referral sent.
--- NOTE | 2020-02-28 09:31 | NUR ---
Kyung from [facility] reports they cannot accept the patient. She states her team recommending LTC.
--- NOTE | 2020-02-28 10:34 | NUR ---
Blanka from [facility] reports they have had an outbreak and are not taking admissions at this time but they can follow along and maybe consider it once they get a handle on the outbreak.
--- NOTE | 2020-02-28 11:29 | NUR ---
Product Safety Officer sent referral to [facility]. They declined. MAGGY collaborated with the team to get a true weight on the patient. She is 378 lbs. MAGGY faxed referral to [facility] and contacted [facility] regarding the referral. The will review it and inform MAGGY of decision. MAGGY contacted [facility]. They will not be able to take the patient. MAGGY contacted [facility] in [place] and they are not taking patient's at this time. MAGGY contacted [facility] regarding referrals, left message. MAGGY collaborated the above information with the team.
--- NOTE | 2020-02-28 13:31 | NUR ---
Rose from [facility]# [phone] fax # [phone] reports they can accept the patient on [id number]. They cannot tranport the patient. MAGGY contacted EMS to inquire about billing insurance for this transportation. Saeed states they will try and bill the insurance and have the patient sign an ABN. SW discussed the above with the patient. She was agreeable. [facility] can mixing picker tender the patient at 10:30 on 02.28. SW to fax discharge orders and fill out transportation sheets for [facility]. MAGGY collaborated the above information with the team and warehouse driver.
--- NOTE | 2020-02-28 15:54 | NUR ---
Certified Ophthalmic Assistant contacted [facility] to review the patient's discharge plan. She was in agreeance with the plan.
--- NOTE | 2020-02-28 16:23 | NUR ---
Attendant Child Activity collaborated with MAGGY Segura who advised patient would like transport set up through [employer] as opposed to EMS transport. [employer] will arrive tomorrow at 1030 and will transport patient via stretcher. MAGGY was advised by [employer] internet sales representative that they will provide oxygen for transport. Trip # [id number]. MAGGY contacted [facility] transport to cancel transport. MAGGY contacted patient to provide update on transport and patient was agreeable.
--- NOTE | 2020-02-28 19:36 | NUR ---
Patient has done well throughout the day. Has requested pain meds for generalized pain; medications given per orders. IV to right forarm without complications. Patient had x2 large loose BM today. Coccyx reddend, encouraged patinent to increase activity. Reported off to pc maintenance technician.
--- NOTE | 2020-02-28 20:00 | NUR ---
Pt currently sittin up in bed watching televison. Pt had complaints of pain and was given pain medication at this time. Pt has her call light MOLOMEin reach and has her remote to her bed within reach.
[2020-02-29 03:33] VITALS: BP 98/57; PULSE 95; TEMP 98.9
--- NOTE | 2020-02-29 08:00 | NUR ---
Patient sitting up in bed eating breakfast. Alert and oriented x 3. Assessment complete. States generalized pain 11/17. INT to left forarm without complications. Denies further needs at this time.
[2020-02-29 08:09] LABS: BASO % 0.7 % (0.0-2.0); EOS # 0.3 (0.0-0.7); EOS % 4.6 % (0-4.0); GRAN # 4.1 (1.4-6.5); GRAN % 69.4 % (42.2-75.2); HEMOGLOBIN 12.7 g/dl (12.5-16.0); LYMPH # 0.9 (1.2-3.4); MEAN CELL VOLUME 91 fl (80.0-100.0); MEAN CORPUSCULAR HEMOGLOBIN 29 pg (27.0-31.0); MEAN CORPUSCULAR HGB CONC 32 g/dl (33.0-37.0); MEAN PLATELET VOLUME 11.2 fl (7.4-10.4); MONO # 0.5 (0.1-0.6); MONO % 8.8 % (1.7-9.3); PLATELET COUNT 309 K/mm3 (130-400); RED BLOOD COUNT 4.38 M/mm3 (4.10-5.30)
[2020-02-29 08:23] LABS: CALCIUM 9.5 mg/dL (8.4-10.2); CREATININE, serum 1.1 (0.52-1.25); POTASSIUM 4.5 mmol/L (3.4-5.0)
[2020-02-29 08:45] VITALS: BP 119/50; PULSE 97; TEMP 97.6
[2020-02-29] MEDS ORDERED: PERFOROMIS20 MCG/2 M IH (09:31)
[2020-02-29] MEDS ORDERED: ZESTRIL 5MG5 MG PO (09:32)
[2020-02-29] MEDS ORDERED: ROXICODONE 55 MG/TAB PO (09:32)
--- NOTE | 2020-02-29 09:32 | NUR ---
SW received a call from hospitalist about 2nd pending COVID test that results had not been received. Hospitalist inquired about if agency would still be able to accept patient. Patient had a previous test on 02/22 which was negative, 2nd test is pending. SW contacted [facility] and spoke with Nurse Chrissy, as the POC listed (Rose) was not at work. Chrissy informed this SW that they should be able to accept the patient, however she wanted to contact the agencies [employer] to make sure. Chrissy recorded this SW's phone number to have their crm administrator Charlotte call to verify.
[2020-02-29] MEDS ORDERED: LYRICA200 MG PO (09:33)
[2020-02-29] MEDS ORDERED: OXYCONTIN 10MG10 MG PO (09:33)
[2020-02-29] MEDS ORDERED: PULMICORT0.5 MG/2 M IH (09:34)
[2020-02-29] MEDS ORDERED: COLACE 100100 MG/CAP PO (09:34)
[2020-02-29] MEDS ORDERED: MIRALAX PA17 GM/Dose PO (09:35)
[2020-02-29] MEDS ORDERED: LEVEMIR FLEX100 U/ML SQ (09:36)
[2020-02-29] MEDS ORDERED: NOVLOG SQ (09:36)
[2020-02-29] MEDS ORDERED: BLUE-EMU LIDOC1 EACH TP (09:36)
--- NOTE | 2020-02-29 10:00 | NUR ---
INT to left forarm discontinued, catheter tip intact.
[2020-02-29 10:07] VITALS: BP 119/50; PULSE 97; TEMP 97.6
--- NOTE | 2020-02-29 11:20 | NUR ---
Patient transfering to [facility] in [facility] via EMS. x5 assist to transfer patient to [facility] from bed. Assisted patient to pack items, had BM prior to discharge pericare provided.
--- NOTE | 2020-02-29 11:54 | NUR ---
Called report to Chrissy Jordan at [facility] [address]
== END 2020-02-29 11:20 | DRG 189 ==
LOC: COL.ER 18:19 → ICU 19:45 → SURG 02-25 19:00
PROVIDERS: Emergency Medicine; Internal Medicine Pulmonary Disease; Physician Assistant; ADMIT Internal Medicine
PROC: 5A09457 Assistance with Respiratory Ventilation, 24-96 Consecutive Hours, Continuous Positive Airway Pressure (ICD-10-PCS; principal; 2020-02-23)
DX: J96.21 Acute and chronic respiratory failure with hypoxia (principal); E87.3 Alkalosis; E66.2 Morbid (severe) obesity with alveolar hypoventilation; I50.30 Unspecified diastolic (congestive) heart failure; J96.22 Acute and chronic respiratory failure with hypercapnia; J44.9 Chronic obstructive pulmonary disease, unspecified; R21 Rash and other nonspecific skin eruption; E11.9 Type 2 diabetes mellitus without complications; K21.9 Gastro-esophageal reflux disease without esophagitis; E03.9 Hypothyroidism, unspecified; F41.9 Anxiety disorder, unspecified; F32.9 Major depressive disorder, single episode, unspecified; R53.81 Other malaise; N32.81 Overactive bladder; M79.7 Fibromyalgia; G89.29 Other chronic pain; D64.9 Anemia, unspecified; K46.9 Unspecified abdominal hernia without obstruction or gangrene; Z20.828 Contact with and (suspected) exposure to other viral communicable diseases; Z87.891 Personal history of nicotine dependence; Z91.19 Patient's noncompliance with other medical treatment and regimen; Z98.84 Bariatric surgery status; Z90.710 Acquired absence of both cervix and uterus; Z87.01 Personal history of pneumonia (recurrent)
CPT/HCPCS: 99223-AI; 99231-AI; 99232-AI; 99233-AI; 99239; J0360; J0692; J1650; J1815; J2930

== ENCOUNTER → 2020-05-20 | Outpatient (CLI) | payer MEDICARE, MEDICAID ==
[~2020-05-20] MED LIST changes: +ABILIFY5 MG PO; +ATARAX 25MG25 MG/TAB PO; +BLUE-EMU LIDOC1 EACH TP; +CEPHALEXIN250 M1 PO; +COLACE 100100 MG/CAP PO; +HYDROCORTISO28.35 GM TOP; +INSULIN LI100 UNIT/2 SQ; +IPRATROPIUM BROM3 M1 IH; +LEVEMIR FLEX100 U/ML SQ; +LEVOXYL0.2 MG PO; +LIORESAL20 MG PO; +LOVENOX 4040 MG/0.4 SQ; +LYRICA200 MG PO; +MELATIN 3 MG-11 TAB PO; +MIRALAX PA17 GM/Dose PO; +NOVLOG SQ; +OXYCONTIN 10MG10 MG PO; +OXYCONTIN15 MG PO; +PERFOROMIS20 MCG/2 M IH; +PULMICORT0.5 MG/2 M IH; +ROXICODONE 55 MG/TAB PO; +ZESTRIL 5MG5 MG PO; +ZYRTEC 10MG10 MG PO
[2020-05-20 17:42] LABS: CALCIUM 9.5 mg/dL (8.4-10.2); CREATININE, serum 1.14 (0.52-1.25); POTASSIUM 3.5 mmol/L (3.4-5.0)
[2020-05-20 17:45] LABS: BASO # 0.1 (0.0-0.2); BASO % 0.7 % (0.0-2.0); EOS # 0.6 (0.0-0.7); EOS % 8.8 % (0-4.0); GRAN # 3.9 (1.4-6.5); GRAN % 54.9 % (42.2-75.2); HEMOGLOBIN 12.8 g/dl (12.5-16.0); LYMPH # 2.1 (1.2-3.4); LYMPH % 29.1 % (20.0-51.0); MEAN CELL VOLUME 94 fl (80.0-100.0); MEAN CORPUSCULAR HEMOGLOBIN 30 pg (27.0-31.0); MEAN CORPUSCULAR HGB CONC 32 g/dl (33.0-37.0); MEAN PLATELET VOLUME 11.8 fl (7.4-10.4); MONO # 0.4 (0.1-0.6); MONO % 6.2 % (1.7-9.3); PLATELET COUNT 314 K/mm3 (130-400); RED BLOOD COUNT 4.28 M/mm3 (4.10-5.30); REDCELL DISTRIBUTION WIDTH-CV 16.3 % (11.5-14.5)
[2020-05-20 18:13] LABS: THYROID STIMULATING HORMONE 6.19 uIU/mL (0.465-4.680)
== END ==
LOC: ZLAB.STJ 17:31
PROVIDERS: Family Medicine
DX: E11.9 Type 2 diabetes mellitus without complications (principal); E03.9 Hypothyroidism, unspecified; Z79.4 Long term (current) use of insulin

== ENCOUNTER → 2020-06-18 | Outpatient (CLI) | payer MEDICARE, MEDICAID | LOC: ZLAB.STJ 17:03 | DX: Z13.29 Encounter for screening for other suspected endocrine disorder (principal) ==